=== PATIENT | male | born 1985 | race Caucasian/White ===

== ENCOUNTER 2016-06-27 21:07 | Emergency (ER) | payer OTHER ==
[2016-06-27 21:16] VITALS: BP 160/80; PULSE 94; TEMP 98.7; BMI 27.8
[2016-06-27] MEDS ORDERED: IBUPROFEN 400 MG TABLET (FP) PO ONE (21:51)
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
== END 2016-06-27 22:32 | disposition home or self-care (01) ==
LOC: JER 21:07
DX: H92.03 Otalgia, bilateral (principal); Y35.091A Legal intervention involving other firearm discharge, law enforcement official injured, initial encounter; Y93.89 Activity, other specified; Y92.89 Other specified places as the place of occurrence of the external cause; Y99.0 Civilian activity done for income or pay
CPT/HCPCS: 99281-25

== ENCOUNTER 2018-02-12 14:48 | Emergency (ER) | payer OTHER ==
[2018-02-12 14:51] VITALS: BP 137/77; PULSE 74; TEMP 98.2; BMI 27.1
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
== END 2018-02-12 15:18 | disposition home or self-care (01) ==
LOC: JERFT 14:48
DX: M79.641 Pain in right hand (principal); S56.413A Strain of extensor muscle, fascia and tendon of right middle finger at forearm level, initial encounter; Y35.891A Legal intervention involving other specified means, law enforcement official injured, initial encounter; S56.415A Strain of extensor muscle, fascia and tendon of right ring finger at forearm level, initial encounter; Y93.89 Activity, other specified; Y92.89 Other specified places as the place of occurrence of the external cause; Y99.0 Civilian activity done for income or pay
CPT/HCPCS: 73110-TC-RT-FY; 73130-TC-RT-FY; 99281-25

== ENCOUNTER 2018-08-26 14:12 | Emergency (ER) | payer OTHER ==
[2018-08-26 14:25] VITALS: BP 140/95; PULSE 84; TEMP 97.8; BMI 27.6
[2018-08-26] MEDS ORDERED: DIPHTH,PERTUSS(ACELL),TET 0.5 ML DISP.SYRIN IM ONE (14:59)
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
[2018-08-26] MEDS ORDERED: IBUPROFEN 400 MG TABLET (FP) PO ONE ×2 (15:17→15:23)
== END 2018-08-26 15:44 | disposition home or self-care (01) ==
LOC: JERFT 14:12
PROC: 3E0234Z Introduction of Serum, Toxoid and Vaccine into Muscle, Percutaneous Approach (ICD-10-PCS; principal; 2018-08-26)
DX: S61.432A Puncture wound without foreign body of left hand, initial encounter (principal); W26.8XXA Contact with other sharp object(s), not elsewhere classified, initial encounter; Y35.891A Legal intervention involving other specified means, law enforcement official injured, initial encounter; Y93.02 Activity, running; Y92.89 Other specified places as the place of occurrence of the external cause; Y99.0 Civilian activity done for income or pay
CPT/HCPCS: 73130-TC-LT-FY; 90471; 90715; 99281-25

== ENCOUNTER 2018-09-11 17:32 | Emergency (ER) | payer OTHER ==
[2018-09-11 17:36] VITALS: BP 140/67; PULSE 78; TEMP 98.6; BMI 26.0
[2018-09-11] MEDS ORDERED: NAPROXEN 500 MG TABLET (FP) PO ONE (17:43)
[2018-09-11] MEDS ORDERED: NAPROXEN 500 MG TABLET (FP) ONE (17:44)
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
== END 2018-09-11 18:20 | disposition home or self-care (01) ==
LOC: JERFT 17:32
DX: M25.531 Pain in right wrist (principal); M54.5 Low back pain; Y35.811A Legal intervention involving manhandling, law enforcement official injured, initial encounter; Y93.89 Activity, other specified; Y92.89 Other specified places as the place of occurrence of the external cause; Y99.0 Civilian activity done for income or pay
CPT/HCPCS: 73110-TC-RT-FY; 73130-TC-RT-FY; 99281-25